=== PATIENT | male | born 1990 | race Hispanic/Latino ===

== ENCOUNTER 2016-08-28 21:47 | Emergency (ER) | payer BC, OTHER ==
[2016-08-28 21:48] VITALS: BMI 22.1
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
[2016-08-28 23:00] LABS: BASO # 0.1 K/uL (0.0-0.2); EOS # 0.1 K/uL (0.0-0.7); HEMATOCRIT 45.1 % (35.0-51.0); LYMPH # 2.4 K/uL (1.0-4.3); MEAN CELL VOLUME 93.5 fL (80.0-94.0); MEAN CORPUSCULAR HEMOGLOBIN 30.6 pg (27.0-31.0); MEAN CORPUSCULAR HGB CONC 32.8 g/dL (33.0-37.0); MEAN PLATELET VOLUME 9.1 fL (7.2-11.7); MONO # 0.4 K/uL (0.0-0.8); MONO % 6.6 % (0.0-10.0); RED CELL DISTRIBUTION WIDTH 14.1 % (11.5-14.5); WHITE BLOOD COUNT 6.1 K/uL (4.8-10.8)
[2016-08-28 23:02] LABS: CHLORIDE 104 mmol/L (98-107); POTASSIUM 3.7 mmol/L (3.6-5.2); SODIUM 147 mmol/L (132-148)
[2016-08-28 23:04] LABS: BILIRUBIN,TOTAL 1.2 mg/dL (0.2-1.3); CARBON DIOXIDE 23 mmol/L (22-30); GFR AFRICAN-AMERICAN > 60; URINE BACTERIA RARE (<OCC); URINE BILIRUBIN NEGATIVE (NEGATIVE); URINE BLOOD NEGATIVE (NEGATIVE); URINE COLOR Straw (YELLOW); URINE GLUCOSE (UA) NORMAL (Normal); URINE KETONE NEGATIVE (NEGATIVE); URINE LEUKOCYTE ESTERASE NEG Leu/uL (Negative); URINE PROTEIN NEGATIVE (NEGATIVE); URINE UROBILINOGEN NORMAL mg/dL (0.2-1.0); WBC URINE < 1 /hpf (0-5)
[2016-08-28 23:05] LABS: ALB/GLOB RATIO 1.4 (1.0-2.1); ALKALINE PHOSPHATASE 53 U/L (38-126); ALT/SGPT 33 U/L (21-72); AST/SGOT 29 U/L (17-59); BLOOD UREA NITROGEN 7 mg/dL (9-20); CALCIUM 8.8 mg/dl (8.6-10.4); GLUCOSE,RANDOM 86 mg/dL (75-110)
[2016-08-28 23:06] LABS: ALCOHOL SERUM 259 mg/dl (0-10)
[2016-08-29 01:08] VITALS: RESP 18
[2016-08-29 04:13] VITALS: BP 123/81; PULSE 79; TEMP 98.1; O2SAT 97
--- NOTE | 2016-08-30 12:15 | CARD ---
APPROVED REPORT EKG Measurement Heart [id number] ND [id number] <Conclusion> Sinus tachycardia Possible Left atrial enlargement Borderline ECG
== END 2016-08-29 04:21 | disposition home or self-care (01) ==
LOC: C.ER 21:47
DX: F10.129 Alcohol abuse with intoxication, unspecified (principal); Y90.8 Blood alcohol level of 240 mg/100 ml or more
CPT/HCPCS: 80053; 81001; 85025; 93005; 99285; G0480

== ENCOUNTER 2017-11-21 09:49 | Day surgery (SDC) | payer MEDICAID ==
[2017-11-12 11:15] VITALS: BMI 21.2
[2017-11-21] MEDS ORDERED: Propofol 10 mg/ml Inj (20 ML) ONE ×2 (11:51→12:09)
[2017-11-21] MEDS ORDERED: Midazolam 2 MG/2 ML VIAL ONE (11:51)
[2017-11-21] MEDS ORDERED: Bupivacaine HCl 0.25% PF (30 ml) Inj ONE (11:57)
[2017-11-21] MEDS ORDERED: Bupivacaine HCl 0.25% PF (10 ml) Inj ONE (12:09)
[2017-11-21] MEDS ORDERED: Clindamycin 600mg/50ml NS 600 MG/50 ML BAG IVPB ONE (12:09)
[2017-11-21] MEDS ORDERED: Lidocaine 2% MPF (5 ml) Inj ONE (12:09)
[2017-11-21] MEDS ORDERED: Succinylcholine Chloride 20 mg/ml Syr (5 ml) IV ONE (12:28)
[2017-11-21] MEDS ORDERED: Neostigmine Methylsulfate 3mg/3ml Syringe IV ONE ×2 (14:00→14:02)
[2017-11-21] MEDS ORDERED: Lidocaine/Epinephrine 1% 1:100000 10 ML IJ ONE (14:42)
[2017-11-21] MEDS ORDERED: Lactated Ringer's 1,000 ML IV ONE (15:00)
[2017-11-21] MEDS: HYDROmorphone 0.5 mg/0.5 ml ISec IVP PRN ×3 (16:09→16:55)
[2017-11-21] MEDS ORDERED: Lactated Ringer's 1,000 ML IV SCH (16:15)
--- NOTE | 2017-11-21 17:14 | PCM.ANESB2 ---
Popliteal Nerve Block - Popliteal Nerve Block Date of Procedure: 11/21/17 Anesthesiologist: leonardo Pre-Procedure Diagnosis: L ankle achilles tendon injury Post-Procedure Diagnosis: same Procedure Performed: Popliteal Nerve Block Left - Procedure Popliteal Nerve Block: This procedure was explained to the patient that it is for post-operative pain management. Consent was obtained after a thorough discussion with the patient regarding the benefits and possible complications of local anesthetic block of the sciatic nerve at the popliteal level. The patient was brought to the operating room and standard monitors are applied. Time-out was held with the circulating nurse to confirm the correct surgery and the appropriate block. After applying oxygen by nasal cannula and administering IV Sedation, patient's operative leg was gently raised and supported and the groove in between the biceps femoris and vastus lateralis muscles was carefully palpated. The skin approximately 8cm above the popliteal crease was then marked. The ultrasound transducer was then applied to the posterior thigh approximately 8cm above the popliteal crease in the transverse plane and the sciatic nerve before its division was visualized lateral to the popliteal artery and in between the bicep femoris and semimembranosus/semitendinosus muscles. After identification, the lateral portion of the thigh was prepped with Betadine solution three times and Lidocaine 1% was injected subcutaneously for topical anesthesia. At this point, a # 21 gauge Stimuplex insulated 4 inch needle was inserted into pre-marked area and advanced in a perpendicular direction. The needle was inserted above the ultrasound transducer in-plane towards the sciatic nerve in a [id number] direction. Needle advancement was performed carefully under direct ultrasound visualization. Nerve stimulator was used and dorsiflexion of the __left___ foot was elicited at a current of _2.0____ MA. After repeated negative aspiration, __1___cc of __0.25___ % __bupivicaine PF was injected and this was followed with _19 cc of __0.25____% __bupivicaine PF_ . Under ultrasound guidance the local anesthetics were observed surrounding sciatic nerve . The needle was removed intact and sterile dressing was applied. There was no paresthesia experienced by pt. The patient tolerated the popliteal nerve block well with stable vital signs and was subsequently prepared for the surgery.
[2017-11-21 18:45] VITALS: BP 107/64; PULSE 74; RESP 18; TEMP 97.8; O2SAT 96
--- NOTE | 2017-11-25 08:48 | PCM.SURG1 ---
Surgeon's Initial Post Op Note - Surgeon's Notes Surgeon: Dr. Edy Hercules DPM Heel Nail Rasper: Yoel Schultz, PGY-2 Type of Anesthesia: General LMA, Block Regional Anesthesia Administered By: Dr. Cesario MD Pre-Operative Diagnosis: Left Achilles Tendon rupture with contracture Operative Findings: See Dictation. M: 2-0 Fiberwire, Lif[employer]ell Alloderm Matrix 12x6cm(25% unused), 3-0 vicryl, 4-0 vicryl, 4-0 Nylon. H: Left thigh pneumatic tourniquet 350mmHg for 137 minutes. Post-Operative Diagnosis: Same as pre-operative Operation Performed: Left achilles tendon primary repair with gastronemius aponeurosis recession Specimen/Specimens Removed: Left achiles tendon fibers Estimated Blood Loss: EBL {In ML}: 10 Blood Products Given: N/A Drains Used: No Drains Post-Op Condition: Good Date of Surgery/Procedure: 11/21/17 Time of Surgery/Procedure: 15:40
--- NOTE | 2017-11-26 07:15 | OP ---
PROCEDURE DATE: 11/21/2017 PRIMARY SURGEON: Edy Hercules DPM. BRAIN SURGEON: Malini Schultz, PGY-2. ANESTHESIOLOGIST: Nelda Nassar MD ANESTHESIA TYPE: General LMA with regional popliteal block. PREOPERATIVE DIAGNOSIS: Left Achilles tendon rupture. POSTOPERATIVE DIAGNOSIS: Left Achilles tendon rupture. PROCEDURE PERFORMED: Left Achilles tendon primary repair with gastrocnemius recession. SPECIMEN: Left Achilles tendon ruptured fibers. INDICATIONS: The patient is a 27-year-old male with the above stated diagnosis. The patient had suffered a traumatic Achilles tendon rupture and is now in need of surgical intervention. It is noted on preoperative examination that on the patient's left side, which he suffered Achilles tendon rupture, the patient has limited anterior ankle and dorsal pedal compartment limitation of range of motion noted 3/5 anterior dorsal foot muscle strength. At this time, the patient signed a surgical consent with careful explanation of risks, benefits, complications, and potential alternatives to the proposed surgical procedure. No guarantees were either given or implied. All the patient's questions were answered to his satisfaction. PREPARATION: The patient's n.p.o. status was confirmed prior to bringing the patient to the operating room. The patient was brought into the operating room and general anesthesia was begun on the stretcher. At this time, the patient was transferred to operating room table and placed in a prone position with regional anesthesia having taken effect and the patient undergoing general anesthesia. The patient's left side received a well-padded pneumatic tourniquet at the thigh level, which was set to 350 mmHg to be inflated once the procedure is began. At this time, the patient's left foot and lower leg to the level of knee were then prepared and draped in usual sterile manner. Foot was exsanguinated. Tourniquet was inflated and the procedure began. PROCEDURE: Left Achilles tendon repair with gastrocnemius myotendinous junction V-Y recession. Attention was then directed to the posterior aspect of the patient's left leg, where Paniagua's test was performed and found to be negative on the patient indicative of Achilles tendon rupture. No palpable dell was appreciated at this time though MRI report indicated level of Achilles tendon rupture was 5 cm proximal to Achilles tendon insertion. At this time, approximately 10 cm incision was made with 1 cm medial to midline of posterior long abscess of leg with midpoint overlying MRI reduced point of Achilles tendon rupture using #15 blade. This incision was extended down to subcutaneous tissue layers with care being taken to identify, avoid and retract all vital neurovascular structures. All bleeders were cauterized as encountered. It was noted that we did not encounter sural cutaneous nerve at this time. At this time, incision was extended down to the level of the crural fascia, which was incised. At this time, Achilles tendon sheath was identified with significant hematoma formation under the paratenon. The paratenon plantaris tendon was identified deep to Achilles tendon sheath. The Achilles tendon paratenon was incised along the full length of the incision and retracted medially and laterally along with the medially oriented plantaris tendon. Surgical site was then flushed with copious amounts of sterile saline, which was used to evacuate excess hematoma. At this time, Achilles tendon was identified, mottled, 0807 Achilles tendon fibers with poor integrity were evaluated at the site of rupture and it was noted the proximal Achilles tendon had retracted approximately 2 cm proximally. All nonviable fibers were resected to healthy pendulous ends with one coupled with prior retraction, which was distracted to appropriate length, resulted in a true Achilles tendon rupture length of 1 cm, which was noted to not be able to be bridged with primary repair due to 1 cm depth gap remaining. At this time, intraoperative decision was made to proceed with V-Y gastrocnemius tendinous recession. At this time, proximal end of incision was extended another 3 cm using #15 blade with care being taken to identify, avoid and retract all vital neurovascular structures. Excess bleeders were cauterized as needed. Paratenon and crural fascia were excised 1001 to reveal tendinous aponeurosis of gastrocnemius muscle with a true depth and length being 1 cm. Arms of V-Y advancement were measured out to be two and quarter centimeters to allow adequate recession with minimal tension. [place] of planned incision was oriented proximally in the midline of gastrocnemius aponeurosis, the arms terminating distal, medial and laterally along aponeurosis margins. Using #15 blade, this aponeurosis was excised along 11:14 course through the aponeurosis while preserving the underlying soleus muscle belly. Surgical site was then flushed with copious amounts of sterile saline. Using gentle distraction, recession flap was advanced, it was distracted distally and it was noted that true Achilles tendon rupture deficit was resolved and primary end-to-end anastomosis of ruptured Achilles tendon could be performed. At this time, distal branches of Achilles tendon were 1216 using 3-0 Vicryl to a noted tubular orientation. At this time, using 2-0 FiberWire, a Krackow type stitch was again used at end of the rupture beginning medially and then bridging across tendon width, exiting distally on contralateral aspect of the limb on both ends of the tendon. At this time, primary end anastomosis was performed using square knot on both arms approximating proximal and distal ends of ruptured tendon successfully. At this time, Achilles tendon rupture repair was markedly fit and found to be stable with no resultant gaping. At this time, Achilles tendon was reinforced with tunnel type stitch patterns performed with 3-0 Vicryl. At this time, AlloDerm matrix patch was introduced to reinforce Achilles tendon repair and was sutured using 4-0 Vicryl. The patch was a 6 x 4 patch and 6 cm longitudinal access was used and oriented proximal to distal, was sutured at apices of graft length to Achilles tendon using 4-0 Vicryl and upon excision of redundant capsule was circumferentially oriented around Achilles tendon and bridge end was reapproximated Achilles to ends of flap using 4-0 Vicryl. At this time, graft was evaluated and was found to be nonmobile and securely attached to division along the Achilles tendon. Surgical site was then once again flushed with copious amounts of sterile saline. Paratenon was reapproximated using 4-0 Vicryl. Subcutaneous tissue layers were reapproximated using 3-0 Vicryl. Skin was reapproximated using 4-0 nylon. Surgical site was then dressed with Xeroform, 4x4 gauze, Kerlix, Gwen, Coban. The patient was placed in AO type posterior splint to be nonweightbearing to the surgical side. POSTOPERATIVE CONDITION: It is noted that total tourniquet time was 137 minutes. At the conclusion of the procedure, tourniquet was released with adequate perfusion to lower extremity. The patient tolerated the anesthesia and procedure well and was escorted to the recovery room with vital signs stable and neurovascular status intact to the left foot. The patient had no complications and tolerated anesthesia well. The patient will follow up with Dr. Hercules in his office on an outpatient basis. Malini Schultz DPM Edy Hercules DPM
== END 2017-11-21 18:45 | disposition home or self-care (01) ==
LOC: C.SDS 09:49
PROVIDERS: ATTEND Podiatrist Foot & Ankle Surgery
DX: S86.012A Strain of left Achilles tendon, initial encounter (principal); M76.62 Achilles tendinitis, left leg
CPT/HCPCS: 27650; 27687; 64450; 88305; J1170; J2001; J2250; J2405; J2704; J2710; J3010; J7120; Q4116

== ENCOUNTER 2018-06-01 10:01 | Emergency (ER) | payer MEDICAID ==
[2018-06-01 10:02] VITALS: BMI 21.2
[2018-06-01 10:09] VITALS: BP 114/70; TEMP 98; O2SAT 100
[2018-06-01] MEDS ORDERED: Albuterol-Ipratrop 3 mg / 0.5 (3 ml) UD INH STA (10:40)
--- NOTE | 2018-06-01 11:15 | C.PDOC ---
History Of Present Illness 27 year male presents to the ED for evaluation of congestion and productive cough with yellow phlegm associated with body aches for 1 week. The patient reports prior visit to [facility] on May 25 for similar symptoms where he was given promethazine and albuterol with no improvement. Admits to smoking. Denies fever, chills, diarrhea, nausea, vomiting, and any other associated symptoms. Time Seen by Provider: 06/01/18 10:34 Chief Complaint (Nursing): Cough, Cold, Congestion History Per: Patient History/Exam Limitations: no limitations Onset/Duration Of Symptoms: Days Current Symptoms Are (Timing): Still Present Past Medical History Reviewed: Historical Data, Nursing Documentation, Vital Signs Vital Signs: Last Vital Signs Temp 98 F 06/01/18 10:08 Pulse 79 06/01/18 10:08 Resp 20 06/01/18 10:08 BP 114/70 06/01/18 10:08 Pulse Ox 100 06/01/18 10:08 - Medical History PMH: Arthritis (hands), Asthma, Depression, Gastritis, Migraine Denies: Diabetes, Hepatitis, HIV, HTN, Chronic Kidney Disease, Seizures, Sexually Transmitted Disease - [facility] Procedures APPLICATION OF SPLINT (03/07/12) Family History: States: Unknown Family Hx - Social History Hx Tobacco Use: Yes Hx Alcohol Use: Yes Hx Substance Use: No - Immunization History Hx Tetanus Toxoid Vaccination: No Hx Influenza Vaccination: Yes (04/2017) Hx Pneumococcal Vaccination: No Review Of Systems Except As Marked, All Systems Reviewed And Found Negative. Constitutional: Positive for: Other (body aches. ) ENT: Positive for: Nose Congestion Respiratory: Positive for: Cough Physical Exam - Physical Exam Appears: Well, Non-toxic Skin: Normal Color, Warm, Dry Head: Atraumatic, Normacephalic Eye(s): bilateral: Normal Inspection, PERRL, EOMI Ear(s): Bilateral: Normal Nose: Normal Oral Mucosa: Moist Throat: Normal, No Erythema, No Exudate Neck: Normal ROM, Supple Chest: Symmetrical Cardiovascular: Rhythm Regular, No Murmur Respiratory: No Rales, No Rhonchi, No Wheezing, Other (Course breath sounds bilaterally) Gastrointestinal/Abdominal: Normal Exam, Soft, No Tenderness Extremity: Bilateral: Atraumatic, Normal Color And Temperature, Normal ROM Neurological/Psych: Oriented x3, Normal Speech ED Course And Treatment O2 Sat by Pulse Oximetry: 100 (RA) Pulse Ox Interpretation: Normal - Other Rad CXR X-Ray: Viewed By Me, Read By Radiologist Interpretation: FINDINGS: LUNGS: No active pulmonary disease. PLEURA: No significant pleural effusion identified. No pneumothorax apparent. CARDIOVASCULAR: No aortic atherosclerotic calcification present. Normal cardiac size. No pulmonary vascular congestion. OSSEOUS STRUCTURES: No significant abnormalities. VISUALIZED UPPER ABDOMEN: Normal. OTHER FINDINGS: None. IMPRESSION: No active disease. Medical Decision Making Medical Decision Making: Assessment: bronchitis Plan: -CXR Duoneb Zithromax Prednisone Disposition - Disposition Referrals: Barbie Aleman MD [Non-Staff] - Disposition: HOME/ ROUTINE Disposition Time: 11:14 Condition: STABLE Additional Instructions: follow up with your doctor within 2 days call to make an appointment take medications as prescribed return to ER if symptoms worsens or progress Prescriptions: Azithromycin [Zithromax] 250 mg PO DAILY #4 tab predniSONE [predniSONE Tab] 50 mg PO DAILY #4 tab Instructions: Acute Bronchitis Forms: [facility] (Jordanian), General Discharge Instructions - Clinical Impression Clinical Impression: Bronchitis - Scribe Statement The provider has reviewed the documentation as recorded by the Scribe (Hazel Flores) Provider Attestation: All medical record entries made by the Scribe were at my direction and personally dictated by me. I have reviewed the chart and agree that the record accurately reflects my personal performance of the history, physical exam, medical decision making, and the department course for this patient. I have also personally directed, reviewed, and agree with the discharge instructions and disposition.
--- NOTE | 2018-06-01 11:20 | RAD ---
Date of service: 06/01/2018 HISTORY: cough COMPARISON: 11/12/2017 TECHNIQUE: Chest PA and lateral FINDINGS: LUNGS: No active pulmonary disease. PLEURA: No significant pleural effusion identified. No pneumothorax apparent. CARDIOVASCULAR: No aortic atherosclerotic calcification present. Normal cardiac size. No pulmonary vascular congestion. OSSEOUS STRUCTURES: No significant abnormalities. VISUALIZED UPPER ABDOMEN: Normal. OTHER FINDINGS: None. IMPRESSION: No active disease.
[2018-06-01 11:35] VITALS: PULSE 90; RESP 17
== END 2018-06-01 11:34 | disposition home or self-care (01) ==
LOC: C.ER 10:01
DX: J40 Bronchitis, not specified as acute or chronic (principal); Z72.0 Tobacco use

== ENCOUNTER 2018-07-29 17:26 | Emergency (ER) | payer MEDICAID ==
[2018-07-29 17:26] VITALS: BMI 21.2
[2018-07-29] MEDS ORDERED: Sodium Chloride 0.9% 1,000 ML IV ONE (19:19)
[2018-07-29] MEDS ORDERED: Sodium Chloride 0.9% 1,000 ML ONE (19:27)
[2018-07-29 19:36] LABS: BASO % 0.3 % (0.0-2.0); EOS % 0.5 % (0.0-4.0); LYMPH % 12.4 % (20.0-40.0); MEAN CELL VOLUME 94.4 fL (80.0-94.0); MEAN CORPUSCULAR HEMOGLOBIN 30.9 pg (27.0-31.0); MEAN CORPUSCULAR HGB CONC 32.7 g/dL (33.0-37.0); MEAN PLATELET VOLUME 9.8 fL (7.2-11.7); MONO # 0.4 K/uL (0.0-0.8); MONO % 4.6 % (0.0-10.0); NEUT # 6.4 K/uL (1.8-7.0); NEUT % 82.2 % (50.0-75.0); NRBC % 0.2 % (0.0-2.0); RBC 4.85 Mil/uL (4.40-5.90); RED CELL DISTRIBUTION WIDTH 13.1 % (11.5-14.5); WHITE BLOOD COUNT 7.8 K/uL (4.8-10.8)
[2018-07-29 19:53] LABS: ALB/GLOB RATIO 1.8 (1.0-2.1); ALBUMIN 5.1 g/dL (3.5-5.0); ALT/SGPT 40 U/L (21-72); AST/SGOT 33 U/L (17-59); BLOOD UREA NITROGEN 12 mg/dL (9-20); CALCIUM 9.2 mg/dl (8.6-10.4); GFR NON-AFRICAN AMERICAN > 60
[2018-07-29 20:12] VITALS: BP 119/71; PULSE 73; RESP 14; TEMP 98; O2SAT 97
--- NOTE | 2018-07-29 21:39 | C.PDOC ---
History Of Present Illness 27 y/o male presents to the ED for evaluation of lightheadedness for one week. He denies fever, chills, cough, nausea, vomiting, or any pain. Chief Complaint (Nursing): Dizziness/Lightheaded History Per: Patient History/Exam Limitations: no limitations Onset/Duration Of Symptoms: Other (one week ) Past Medical History Reviewed: Historical Data, Nursing Documentation, Vital Signs Vital Signs: Last Vital Signs Temp 98 F 07/29/18 20:12 Pulse 73 07/29/18 20:12 Resp 14 07/29/18 20:12 BP 119/71 07/29/18 20:12 Pulse Ox 97 07/29/18 20:12 - Medical History PMH: Arthritis (hands), Asthma, Depression, Gastritis, Migraine Denies: Diabetes, Hepatitis, HIV, HTN, Chronic Kidney Disease, Seizures, Sexually Transmitted Disease Surgical History: No Surg Hx - [facility] Procedures APPLICATION OF SPLINT (03/07/12) Family History: States: Unknown Family Hx - Social History Hx Tobacco Use: Yes Hx Alcohol Use: Yes Hx Substance Use: No - Immunization History Hx Tetanus Toxoid Vaccination: No Hx Influenza Vaccination: Yes (04/2017) Hx Pneumococcal Vaccination: No Review Of Systems Constitutional: Negative for: Fever, Chills Respiratory: Negative for: Cough Gastrointestinal: Negative for: Nausea, Vomiting Neurological: Positive for: Other (lightheadedness ) Physical Exam - Physical Exam Appears: Non-toxic, No Acute Distress Skin: Normal Color, Warm, Dry, Other (old, self-inflicted scars to left forearm ) Head: Atraumatic, Normacephalic Eye(s): bilateral: Normal Inspection Oral Mucosa: Moist Neck: Supple Chest: Symmetrical, No Deformity, No Tenderness Cardiovascular: Rhythm Regular, No Murmur Respiratory: Normal Breath Sounds, No Rales, No Rhonchi, No Wheezing Extremity: Normal ROM, Capillary Refill (less than 2 seconds ) Neurological/Psych: Oriented x3, Normal Speech, Normal Cognition ED Course And Treatment - Laboratory Results Result Diagrams: 07/29/18 19:33 07/29/18 19:33 Lab Results: Troponin I < 0.0120 ng/mL (0.00-0.120) 07/29/18 19:33 Total Bilirubin 0.9 mg/dL (0.2-1.3) 07/29/18 19:33 AST 33 U/L (17-59) 07/29/18 19:33 ALT 40 U/L (21-72) 07/29/18 19:33 Alkaline Phosphatase 69 U/L (38-126) 07/29/18 19:33 Total Protein 7.9 g/dL (6.3-8.3) 07/29/18 19:33 Albumin 5.1 g/dL (3.5-5.0) H D 07/29/18 19:33 Globulin 2.8 gm/dL (2.2-3.9) 07/29/18 19:33 Albumin/Globulin Ratio 1.8 (1.0-2.1) 07/29/18 19:33 ECG Rhythm: Sinus Rhythm Rate From EC O2 Sat by Pulse Oximetry: 97 (on RA) Pulse Ox Interpretation: Normal Medical Decision Making Medical Decision Making: Progress: Bloodwork, CXR, EKG ordered and reviewed. IV Fluids given. Disposition - Disposition Referrals: [facility] [Outside] [facility] [Outside] Disposition: HOME/ ROUTINE Disposition Time: 20:25 Condition: IMPROVED Additional Instructions: HUYEN ROTH, thank you for letting us take care of you today. The emergency medical care you received today was directed at your acute symptoms. If you were prescribed any medication, please fill it and take as directed. It may take several days for your symptoms to resolve. Return to the Emergency Department if your symptoms worsen, do not improve, or if you have any other problems. Please contact your doctor or call one of the physicians/clinics you have been referred to that are listed on the Patient Visit Information form that is included in your discharge packet. Bring any paperwork you were given at discharge with you along with any medications you are taking to your follow up visit. Our treatment cannot replace ongoing medical care by a primary care provider outside of the emergency department. Thank you for allowing the [facility] team to be part of your care today. Follow up with the clinic this week for re-evaluation and further management. Instructions: Generalized Weakness (DC) Forms: [facility] (Tajik) - Clinical Impression Clinical Impression: Anxiety - Scribe Statement The provider has reviewed the documentation as recorded by the Scribe (Yee Bravo) Provider Attestation: All medical record entries made by the Scribe were at my direction and personally dictated by me. I have reviewed the chart and agree that the record accurately reflects my personal performance of the history, physical exam, medical decision making, and the department course for this patient. I have also personally directed, reviewed, and agree with the discharge instructions and disposition.
--- NOTE | 2018-07-30 07:24 | RAD ---
HISTORY: chest pain COMPARISON: Chest x-ray performed 06/01/18 TECHNIQUE: Chest, one view. FINDINGS: LUNGS: No focal consolidation. Please note that chest x-ray has limited sensitivity for the detection of pulmonary masses. PLEURA: No significant pleural effusion identified. No definite pneumothorax . CARDIOVASCULAR: Heart size appears within normal limits. No significant atherosclerotic calcification present. OSSEOUS STRUCTURES: No acute osseous abnormality identified. VISUALIZED UPPER ABDOMEN: Unremarkable. OTHER FINDINGS: None. IMPRESSION: No focal consolidation.
--- NOTE | 2018-07-30 20:18 | CARD ---
APPROVED REPORT Date of service: 07/29/2018 EKG Measurement Heart [id number] QT0T0 QTc0 <Conclusion> No QRS complexes found, no ECG analysis possible
== END 2018-07-29 21:51 | disposition home or self-care (01) ==
LOC: C.ER 17:26
DX: F41.9 Anxiety disorder, unspecified (principal); Z72.0 Tobacco use
CPT/HCPCS: 71045; 80053; 84443; 84484; 85025; 93005; 96360; 96361; 99285; J7030

== ENCOUNTER 2018-08-14 18:01 | Emergency (ER) | payer MEDICAID ==
[2018-08-14 18:01] VITALS: BMI 21.2
[2018-08-14] MEDS ORDERED: Iohexol 240 (50 ml) PO STA (19:00)
--- NOTE | 2018-08-14 19:11 | C.PDOC ---
History Of Present Illness 28 year old male presents to ED with complaint of weakness , having nasal congestion with yellow discharge, urinary frequency ,abdominal discomfort, and black stool for the past 2 days. Patient has a PMHx of gastritis and H. Pylori. Patient admits to having unprotected heterosexual intercourse. Patient was last seen 1 week prior for weakness and dizziness. Labs came back normal and patient was diagnosed with anxiety. Patient also complains of a subjective fever. Patient denies penile discharge, nausea, and vomiting. Time Seen by Provider: 08/14/18 18:12 Chief Complaint (Nursing): GI Problem History Per: Patient History/Exam Limitations: no limitations Onset/Duration Of Symptoms: Days (2) Current Symptoms Are (Timing): Still Present Location Of Pain/Discomfort: Diffuse Radiation Of Pain To:: None Associated Symptoms: Fever, Urinary Symptoms, Other (black stool). denies: Chills, Nausea, Vomiting, Diarrhea Exacerbating Factors: None Alleviating Factors: None Past Medical History Reviewed: Historical Data, Nursing Documentation, Vital Signs Vital Signs: Last Vital Signs Temp 98.4 F 08/14/18 18:13 Pulse 76 08/14/18 18:13 Resp 18 08/14/18 18:13 BP 129/76 08/14/18 18:13 Pulse Ox 97 08/14/18 18:13 - Medical History PMH: Arthritis (hands), Asthma, Depression, Gastritis, Gastrointestinal Ulcer, Migraine Denies: Diabetes, Hepatitis, HIV, HTN, Chronic Kidney Disease, Seizures, Sexu ally Transmitted Disease Surgical History: No Surg Hx - [facility] Procedures APPLICATION OF SPLINT (03/07/12) Family History: States: Unknown Family Hx - Social History Hx Tobacco Use: Yes Hx Alcohol Use: Yes Hx Substance Use: No - Immunization History Hx Tetanus Toxoid Vaccination: No Hx Influenza Vaccination: No Hx Pneumococcal Vaccination: No Review Of Systems Constitutional: Positive for: Fever, Weakness. Negative for: Chills ENT: Positive for: Nose Discharge (yellow in nature), Nose Congestion Gastrointestinal: Positive for: Abdominal Pain (discomfort), Melena. Negative for: Nausea, Vomiting Genitourinary: Positive for: Frequency. Negative for: Penile Discharge Neurological: Negative for: Weakness, Numbness, Dizziness Physical Exam - Physical Exam Appears: Non-toxic, Other (anxious, nervous) Skin: Normal Color, Warm, Dry Head: Atraumatic, Normacephalic Neck: Normal ROM, Supple Chest: Symmetrical, No Deformity Cardiovascular: Rhythm Regular, No Murmur Respiratory: No Accessory Muscle Use, No Rales, No Rhonchi, No Wheezing Gastrointestinal/Abdominal: Bowel Sounds, Soft, Tenderness, Guarding (voluntary), Hernia (reducible, umbilical area) Rectal: Rectal Tone (normal sphincter tone), Melena, No Mass Extremity: Capillary Refill (<2 seconds) Extremity: Bilateral: Atraumatic, Normal Color And Temperature, Normal ROM Neurological/Psych: Oriented x3, Normal Speech, Normal Cognition ED Course And Treatment - Laboratory Results Result Diagrams: 08/14/18 19:02 08/14/18 19:02 Lab Interpretation: Normal O2 Sat by Pulse Oximetry: 97 (in RA) - CT Scan/US CT abd/pel Other Rad Studies (CT/US): Read By Radiologist, Radiology Report Reviewed CT/US Interpretation: EXAM: CT Abdomen and Pelvis with IV contrast. CLINICAL HISTORY: Rectal bleed abd pain hx of stones and gastritus. TECHNIQUE: Axial computed tomography images of the abdomen and pelvis with oral and intravenous contrast. 0.00 mGy-cm. CONTRAST: With; OMNI 240 & VISI 320 100MLS. COMPARISON: None provided. FINDINGS: LUNG BASES: The lung bases appear clear. No pleural effusions are seen. LIVER: Unremarkable. GALLBLADDER AND BILE DUCTS: The gallbladder appears within normal limits. No radioopaque gallstones are seen. No biliary ductal dilatation is evident. PANCREAS: Unremarkable. SPLEEN: Unremarkable. ADRENAL GLANDS: Unremarkable. KIDNEYS, URETERS, AND BLADDER: The kidneys appear within normal limits. There is no hydronephrosis or hydroureter. No urinary calculi are seen. STOMACH AND BOWEL: Thick walled fluid filled duodenum and loops of jejunum as well as ileum compatible with enteritis. Thick walled fluid filled colon is noted with involvement of all right colon compatible with colitis. Infectious and inflammatory etiologies are considered. Consider consultation with GI service. APPENDIX: No evidence of acute appendicitis on CT examination. PERITONEUM: No free fluid. No free air. LYMPH NODES: No lymphadenopathy is evident. RE PRODUCTIVE: Unremarkable as visualized. VASCULATURE: No evidence of abdominal aortic aneurysm. BONES: No aggressive appearing osseous lesion. No acute osseous pathology evident. IMPRESSION: Enterocolitis. Infectious and inflammatory etiologies are considered. Consider consultation with GI service. Medical Decision Making Medical Decision Making: Impression: 28 year old male experiencing weakness, nasal congestion, abdominal discomfort, and melena Plan: Abdomen/Pelvis CT ordered for patient. Labs ordered with Chlamydia/ GC, UA, and Stool sample Disposition Counseled Patient/Family Regarding: Studies Performed, Diagnosis, Need For Followup - Disposition Referrals: Harinder Eduardo MD [Staff Provider] - Disposition: HOME/ ROUTINE Disposition Time: 23:03 Condition: STABLE Instructions: Colitis Forms: [facility] ([place]) - Clinical Impression Clinical Impression: Colitis - Scribe Statement The provider has reviewed the documentation as recorded by the Scribe (Carina Zhou) All medical record entries made by the Scribe were at my direction and personally dictated by me. I have reviewed the chart and agree that the record accurately reflects my personal performance of the history, physical exam, medical decision making, and the department course for this patient. I have also personally directed, reviewed, and agree with the discharge instructions and disposition.
[2018-08-14 19:17] LABS: BASO % 0.6 % (0.0-2.0); EOS # 0.1 K/uL (0.0-0.7); EOS % 2.3 % (0.0-4.0); HEMOGLOBIN 14.4 g/dL (12.0-18.0); LYMPH # 1.3 K/uL (1.0-4.3); LYMPH % 27.4 % (20.0-40.0); MEAN CELL VOLUME 94.4 fL (80.0-94.0); MEAN CORPUSCULAR HEMOGLOBIN 30.9 pg (27.0-31.0); MEAN CORPUSCULAR HGB CONC 32.7 g/dL (33.0-37.0); MEAN PLATELET VOLUME 10.4 fL (7.2-11.7); MONO # 0.3 K/uL (0.0-0.8); MONO % 6.9 % (0.0-10.0); NEUT % 62.8 % (50.0-75.0); NRBC % 0.3 % (0.0-2.0); RBC 4.67 Mil/uL (4.40-5.90); RED CELL DISTRIBUTION WIDTH 13.4 % (11.5-14.5); WHITE BLOOD COUNT 4.8 K/uL (4.8-10.8)
[2018-08-14 19:27] LABS: ALB/GLOB RATIO 1.9 (1.0-2.1); ALT/SGPT 43 U/L (21-72); AST/SGOT 30 U/L (17-59); BLOOD UREA NITROGEN 16 mg/dL (9-20); CALCIUM 9.2 mg/dl (8.6-10.4); GFR NON-AFRICAN AMERICAN > 60; LIPASE 85 U/L (23-300)
[2018-08-14] MEDS ORDERED: Iohexol 240 (50 ml) ONE (19:56)
[2018-08-14 20:25] LABS: URINE BILIRUBIN NEGATIVE (NEGATIVE); URINE BLOOD NEGATIVE (NEGATIVE); URINE CLARITY Clear (Clear); URINE COLOR Yellow (YELLOW); URINE GLUCOSE (UA) NORMAL (Normal); URINE LEUKOCYTE ESTERASE NEG Leu/uL (Negative); URINE PROTEIN NEGATIVE (NEGATIVE); URINE UROBILINOGEN NORMAL mg/dL (0.2-1.0)
[2018-08-14] MEDS ORDERED: Iodixanol 320 MG/ML 100 ML BOTTLE IV ONE (21:39)
[2018-08-14 22:59] VITALS: O2SAT 97
[2018-08-14 23:28] VITALS: BP 132/76; PULSE 80; RESP 20; TEMP 98
--- NOTE | 2018-08-15 10:57 | CT ---
Date of service: 2018-08-14 22:09:35 PROCEDURE: CT abdomen and pelvis HISTORY: Abdominal pain COMPARISON: None. TECHNIQUE: Contiguous axial images of the abdomen and pelvis performed following oral and intravenous injection of approximately 100 cc Omnipaque 350 contrast material. Additional 2D sagittal and coronal reformats generated. Radiation dose: Total exam DLP = 340.22 mGy-cm. This CT exam was performed using one or more of the following dose reduction techniques: Automated exposure control, adjustment of the mA and/or kV according to patient size, and/or use of iterative reconstruction technique. FINDINGS: LOWER THORAX: Heart size within range of normal. No significant pericardial effusion. There is a small hiatal hernia. Lung bases clear without focal consolidation. No effusion or basilar pneumothorax. Some minimal curvilinear scarring seen in the left posterior sulcus. LIVER: Liver exhibits relatively normal size. No obvious hepatic mass collection or calcification. Portal and splenic veins are opacified. GALLBLADDER AND BILE DUCTS: Gallbladder is physiologically distended. No evidence of intraluminal gallbladder calculi. PANCREAS: Pancreas appears unremarkable without masses collections calcifications or significant ductal dilatation. SPLEEN: The spleen exhibits normal size and attenuation pattern without mass collection or calcification. There is a small presumed splenule adjacent to the posterior inferior main body of the spleen. ADRENALS: Unremarkable.. KIDNEYS AND URETERS: The kidneys demonstrate relatively symmetric nephrograms. No evidence of nephrolithiasis or hydronephrosis. BLADDER: The urinary bladder is incompletely distended which in part accounts for slight thick-walled appearance. Muscular hypertrophy presumably contributes however the possibility of a cystitis not excluded. REPRODUCTIVE: Prostate gland measures approximately 3.7 cm. Small prostatic calcification. APPENDIX: Unremarkable. BOWEL: Evaluation of the bowel slightly limited due to incompletely distended with oral contrast material and air. Prominent rugal folds possibly in part due to incomplete distention however possibility of a gastritis should be considered. Clinical correlation recommended. Visualized loops of small bowel exhibit normal contour and caliber. No evidence of mechanical small bowel obstruction with oral contrast material extending into the colon to the level of the distal transverse colon region. Moderate to large amount of stool seen cecum at ascending and transverse colon and to a lesser degree remaining colon consistent with fecal retention/constipation. No definitive mural wall thickening . PERITONEUM: Unremarkable. No fluid collection. No free air. LYMPH NODES: Unremarkable. No enlarged lymph nodes. VASCULATURE: Unremarkable. No aortic aneurysm. No aortic atherosclerotic calcification or mural plaque present. BONES: No acute compression fractures no retropulsed fragments. Vertebral bodies exhibit normal stature. Vertebral bodies and facets normally aligned. There is a tiny bone island or osteoma left femoral head. OTHER FINDINGS: None. IMPRESSION: There is air are enlarged the thickened appearing gastric rugal folds; rule out gastritis. Consider GI consultation.. Findings also consistent with mild constipation. Note the concordant preliminary report provided by overnight radiology service.
== END 2018-08-14 23:26 | disposition home or self-care (01) ==
LOC: C.ER 18:01
DX: K52.9 Noninfective gastroenteritis and colitis, unspecified (principal)
CPT/HCPCS: 74177; 80053; 81001; 83690; 85025; 87491; 87591; 99284; G0328; Q9966; Q9967